=== PATIENT | female | born 1965 | race Caucasian/White ===

== ENCOUNTER 2016-09-21 17:48 | Emergency (ER) | payer BC ==
[~2016-09-21] VITALS: Ht 152.4 cm; Wt 90.7 kg
[~2016-09-21 17:48] MED LIST: ADAL40PE SQ; GABA300C PO; LISD70CA PO; METH-406 PO; NAPR220C15 PO; VENL150C2 PO
--- NOTE | 2016-09-21 18:54 | NUR ---
Dr Hutton is at bedside evaluating the patient, pending MD orders
--- NOTE | 2016-09-21 19:00 | NUR ---
REPORT GIVEN BY DAYSHIFT NURSE... PT ALERT, ORIENTED X 4, NO RESP DISTRESSS NOTED OR REPORTED UPON ASSESSMENT... WILL MONITOR FOR SAFETY, PAIN AND COMFORT...
[2016-09-21] MEDS: HYDROMORPHONE 1 MG/1 ML DISP.SYRIN IM ONE (20:27)
[2016-09-21] MEDS ORDERED: HYDROMORPHONE 1 MG/1 ML DISP.SYRIN ONE (20:28)
--- NOTE | 2016-09-21 20:57 | NUR ---
Patient discharged to home in stable conditon. Written and verbal after care instructions given. Patient verbalizes understanding of instructions. PT WALKED OUT OF ER UNASSISTED WITH BELONGINGS AT SIDE... STATES SON IS ON HIS WAY TO PICK HER UP...
[2016-09-21 20:59] VITALS: BP 134/97
== END 2016-09-21 20:59 | disposition home or self-care (01) ==
LOC: ER 17:48
DX: H66.91 Otitis media, unspecified, right ear (principal); F41.9 Anxiety disorder, unspecified; Z88.0 Allergy status to penicillin; F10.20 Alcohol dependence, uncomplicated; F17.200 Nicotine dependence, unspecified, uncomplicated; M06.9 Rheumatoid arthritis, unspecified; F31.9 Bipolar disorder, unspecified; Z88.2 Allergy status to sulfonamides; Z88.6 Allergy status to analgesic agent; Z88.1 Allergy status to other antibiotic agents; Z88.7 Allergy status to serum and vaccine
CPT/HCPCS: 71020; 93005; 96372; 99284; A4663; J1170

== ENCOUNTER 2016-09-28 05:18 | Emergency (ER) | payer BC ==
[~2016-09-28] VITALS: Ht 162.6 cm; Wt 90.7 kg
[2016-09-28] MEDS ORDERED: LEVO500T15 PO (05:42)
[2016-09-28] MEDS ORDERED: IPRATROPIUM BROMIDE 0.5 MG/2.5 ML NEBU NEB ONE (05:45)
[2016-09-28] MEDS ORDERED: ALBUTEROL SULFATE 2.5 MG/3 ML NEBU NEB ONE (05:45)
[2016-09-28] MEDS ORDERED: ALBUTEROL SULFATE 2.5 MG/3 ML NEBU ONE (05:57)
[2016-09-28] MEDS ORDERED: IPRATROPIUM BROMIDE 0.5 MG/2.5 ML NEBU ONE (05:57)
[2016-09-28] MEDS ORDERED: predniSONE 20 MG TABLET PO ONE (06:00)
[2016-09-28 06:07] LABS: BASOPHILS % (AUTO) 0.5 % (0.0-2.0); CALCIUM 8.4 mg/dL (8.5-10.1); CREATININE 0.8 mg/dL (0.6-1.3); EOSINOPHILS # (AUTO) 0.2 K/uL (0.0-0.7); EOSINOPHILS % (AUTO) 3.1 % (0.0-7.0); HEMATOCRIT 43.3 % (37.0-47.0); HEMOGLOBIN 14.3 g/dL (12.0-16.0); LYMPHOCYTES # (AUTO) 2.2 K/uL (0.8-4.8); LYMPHOCYTES % (AUTO) 36.5 % (20.5-51.5); MEAN CORPUSCULAR HGB CONC 33 g/dL (32.0-37.0); MEAN CORPUSCULAR VOLUME 81.7 fL (81.0-99.0); MONOCYTES # (AUTO) 0.5 K/uL (0.1-1.30); MONOCYTES % (AUTO) 7.8 % (0.0-11.0); NEUTROPHILS # (AUTO) 3.2 K/uL (1.8-8.9); NEUTROPHILS % (AUTO) 52.1 % (38.5-71.5); PLATELET COUNT (AUTO) 274 K/uL (150-450); POTASSIUM 3.6 mmol/L (3.5-5.1); RED BLOOD CELL COUNT(AUTO) 5.29 MIL/uL (4.20-5.40); RED CELL DISTRIBUTION WIDTH 13.6 % (11.5-14.5); WHITE BLOOD COUNT (AUTO) 6.1 K/uL (4.0-11.2)
[2016-09-28] MEDS ORDERED: LORAZEPAM 0.5 MG TABLET PO ONE (06:15)
[2016-09-28 06:19] LABS: ALBUMIN 3.8 g/dL (3.4-5.0); BILIRUBIN,DIRECT 0.1 mg/dL (0.0-0.2); BILIRUBIN,TOTAL 0.6 mg/dL (0.2-1.0); TOTAL PROTEIN, SERUM 8.3 g/dL (6.4-8.2)
[2016-09-28] MEDS ORDERED: LORAZEPAM 1 MG TABLET ONE (06:22)
[2016-09-28] MEDS ORDERED: predniSONE 20 MG TABLET ONE (06:23)
--- NOTE | 2016-09-28 06:34 | NUR ---
PATIENT C/O A HEADACHE AND REQUESTED FOR ICE PACK ON HER HEAD. NURSE GOT ICE PACK FOR PATIENT.
--- NOTE | 2016-09-28 06:59 | NUR ---
SBAR REPORT GIVEN TO ERNESTO.
--- NOTE | 2016-09-28 09:09 | NUR ---
Patient discharged to home in stable conditon. Written and verbal after care instructions given. Patient verbalizes understanding of instructions.PT SAYS FEELS BETTER. HAD SOME HOSPITAL TRAY BREAKFAST. IS GOING TO PMD APPT TODAY. PT AT BEDSIDE TO TAKE THE PT HOME.
[2016-09-28 09:10] VITALS: BP 151/81
== END 2016-09-28 09:32 | disposition home or self-care (01) ==
LOC: ER 05:18
DX: J20.9 Acute bronchitis, unspecified (principal); F41.9 Anxiety disorder, unspecified; M54.9 Dorsalgia, unspecified; M79.7 Fibromyalgia; M06.9 Rheumatoid arthritis, unspecified; F31.9 Bipolar disorder, unspecified; F17.200 Nicotine dependence, unspecified, uncomplicated; Z88.0 Allergy status to penicillin; Z88.1 Allergy status to other antibiotic agents; Z88.6 Allergy status to analgesic agent; Z88.7 Allergy status to serum and vaccine
CPT/HCPCS: 36415; 70030-TC; 71010; 85025; 87040; 93005; A4663; J3590; J7512

== ENCOUNTER 2017-06-27 10:48 | Emergency (ER) | payer BC ==
[~2017-06-27] VITALS: Ht 154.9 cm; Wt 90.7 kg
[~2017-06-27 10:48] MED LIST changes: +LEVO500T2 PO
[2017-06-27] MEDS ORDERED: ONDANSETRON 4 MG/2 ML VIAL IM ONE (12:15)
[2017-06-27] MEDS ORDERED: HYDROMORPHONE 1 MG/1 ML DISP.SYRIN IM ONE (12:15)
--- NOTE | 2017-06-27 12:19 | NUR ---
mse completed, meds admin, left shoulder sling placed, aci/rx 2 given. pt d/c'd home,pt ambulated w/o diff/took all belongings, present and to drive.
[2017-06-27 12:22] VITALS: BP 112/74
[2017-06-27] MEDS ORDERED: ONDANSETRON 4 MG/2 ML VIAL ONE (12:25)
[2017-06-27] MEDS ORDERED: HYDROMORPHONE 4 MG/1 ML DISP.SYRIN ONE (12:26)
== END 2017-06-27 12:21 | disposition home or self-care (01) ==
LOC: ER 10:48
DX: M54.12 Radiculopathy, cervical region (principal); M25.512 Pain in left shoulder; M79.7 Fibromyalgia; M06.9 Rheumatoid arthritis, unspecified; Z88.0 Allergy status to penicillin; Z88.1 Allergy status to other antibiotic agents; Z88.2 Allergy status to sulfonamides; Z88.5 Allergy status to narcotic agent; F17.200 Nicotine dependence, unspecified, uncomplicated; Z90.49 Acquired absence of other specified parts of digestive tract; G43.909 Migraine, unspecified, not intractable, without status migrainosus; J44.9 Chronic obstructive pulmonary disease, unspecified
CPT/HCPCS: A4663; J1170; J2405

== ENCOUNTER 2017-09-09 16:23 | Inpatient (IN) | payer BC ==
[~2017-09-09] VITALS: Ht 162.6 cm; Wt 94.8 kg
[2017-09-09] MEDS ORDERED: ONDANSETRON 4 MG/2 ML VIAL IV ONE (17:30)
[2017-09-09] MEDS ORDERED: IV NORMAL SALINE 1000 ML BAG IV ONE (17:30)
[2017-09-09] MEDS ORDERED: HYDROMORPHONE 1 MG/1 ML DISP.SYRIN IV ONE (17:30)
[2017-09-09] MEDS ORDERED: HYDROMORPHONE 2 MG/1 ML DISP.SYRIN ONE ×2 (17:36→20:45)
[2017-09-09] MEDS ORDERED: ONDANSETRON 4 MG/2 ML VIAL ONE ×2 (17:37→20:48)
[2017-09-09 17:52] LABS: BASOPHILS % (AUTO) 0.3 % (0.0-2.0); EOSINOPHILS # (AUTO) 0.1 K/uL (0.0-0.7); EOSINOPHILS % (AUTO) 1.4 % (0.0-7.0); HEMATOCRIT 44.9 % (31.2-41.9); HEMOGLOBIN 14.9 g/dL (10.9-14.3); LYMPHOCYTES # (AUTO) 2.9 K/uL (20.0-40.0); LYMPHOCYTES % (AUTO) 28.4 % (20.5-51.5); MEAN CORPUSCULAR HEMOGLOBIN 28.3 uug (24.7-32.8); MEAN CORPUSCULAR HGB CONC 33 g/dL (32.3-35.6); MEAN CORPUSCULAR VOLUME 85.3 fL (75.5-95.3); MONOCYTES # (AUTO) 0.9 K/uL (2.0-10.0); MONOCYTES % (AUTO) 9.2 % (0.0-11.0); NEUTROPHILS # (AUTO) 6.1 K/uL (1.8-8.9); NEUTROPHILS % (AUTO) 60.7 % (38.5-71.5); PLATELET COUNT (AUTO) 334 K/uL (179-408); RED BLOOD CELL COUNT(AUTO) 5.26 MIL/uL (3.63-4.92); WHITE BLOOD COUNT (AUTO) 10.1 K/uL (3.8-11.8)
[2017-09-09 18:08] LABS: ALANINE AMINOTRANSFERASE 43 U/L (14-59); ALKALINE PHOSPHATASE 133 U/L (50-136); ASPARTATE AMINOTRANSFERASE 22 U/L (15-37); BILIRUBIN,DIRECT < 0.1 mg/dL (0.0-0.2); BILIRUBIN,TOTAL 0.2 mg/dL (0.2-1.0); CARBON DIOXIDE 28 mmol/L (21-32); CHLORIDE 102 mmol/L (98-107); CREATININE 0.8 mg/dL (0.6-1.3); GLUCOSE 85 mg/dL (74-106); POTASSIUM 4.2 mmol/L (3.5-5.1); TOTAL PROTEIN, SERUM 7.8 g/dL (6.4-8.2); UREA NITROGEN, BLOOD 16 mg/dL (7-18)
[2017-09-09] MEDS ORDERED: ACETAMINOPHEN 325 MG TABLET PO PRN ×2 (19:15→23:32)
[2017-09-09] MEDS ORDERED: Z GUARD REMEDY PASTE 57 GM TUBE TOP PRN (19:15)
[2017-09-09] MEDS ORDERED: HYDROCODONE/APAP 5-325MG TABLET PO PRN ×2 (19:15→23:35)
[2017-09-09] MEDS ORDERED: MAGNESIUM HYDROXIDE 30 ML LIQUID UDC PO PRN ×2 (19:15→23:37)
[2017-09-09] MEDS ORDERED: HYDROMORPHONE 1 MG/1 ML DISP.SYRIN IV PRN (19:15)
[2017-09-09 20:00] VITALS: BP 119/72
[2017-09-09] MEDS: ONDANSETRON 4 MG/2 ML VIAL IV PRN (20:50)
[2017-09-09] MEDS: IV NS 1000 ML 1,000 ML IV PRN (20:52)
[2017-09-09] MEDS ORDERED: HYDROMORPHONE 2 MG/1 ML DISP.SYRIN IV PRN (21:31)
[2017-09-10] MEDS: HYDROMORPHONE 2 MG/1 ML DISP.SYRIN IV PRN ×2 (01:10→09:06)
[2017-09-10] MEDS ORDERED: LORAZEPAM 1 MG TABLET PO ONE (02:00)
[2017-09-10] MEDS: ONDANSETRON 4 MG/2 ML VIAL IV PRN ×2 (02:24→10:11)
[2017-09-10 04:00] VITALS: BP 133/74
[2017-09-10 06:47] LABS: BASOPHILS # (AUTO) 0.1 K/uL (0.0-8.0); BASOPHILS % (AUTO) 1.1 % (0.0-2.0); EOSINOPHILS # (AUTO) 0.1 K/uL (0.0-0.7); EOSINOPHILS % (AUTO) 1.4 % (0.0-7.0); HEMOGLOBIN 13.1 g/dL (10.9-14.3); LYMPHOCYTES # (AUTO) 2.2 K/uL (20.0-40.0); MEAN CORPUSCULAR HEMOGLOBIN 28.7 uug (24.7-32.8); MEAN CORPUSCULAR HGB CONC 33 g/dL (32.3-35.6); MEAN CORPUSCULAR VOLUME 85.8 fL (75.5-95.3); MONOCYTES # (AUTO) 0.6 K/uL (2.0-10.0); MONOCYTES % (AUTO) 9.7 % (0.0-11.0); NEUTROPHILS # (AUTO) 3.4 K/uL (1.8-8.9); NEUTROPHILS % (AUTO) 53.8 % (38.5-71.5); PLATELET COUNT (AUTO) 276 K/uL (179-408); RED BLOOD CELL COUNT(AUTO) 4.58 MIL/uL (3.63-4.92)
[2017-09-10 06:50] LABS: CREATININE 0.7 mg/dL (0.6-1.3); MAGNESIUM 2.1 mg/dL (1.8-2.4); PHOSPHOROUS 4.2 mg/dL (2.5-4.9); POTASSIUM 4.2 mmol/L (3.5-5.1)
[2017-09-10 07:11] LABS: HEMATOCRIT 39.3 % (31.2-41.9); WHITE BLOOD COUNT (AUTO) 6.4 K/uL (3.8-11.8)
[2017-09-10] MEDS ORDERED: LISDEXAMFETAMINE DIMESYLATE 70 MG PO SCH (09:00)
[2017-09-10] MEDS ORDERED: VENLAFAXINE XR 150 MG CAP.SR.24H PO SCH ×2 (09:00→13:00)
[2017-09-10 11:36] VITALS: BP 108/58
[2017-09-10] MEDS: TOPIRAMATE 25 MG TABLET PO SCH ×2 (11:53→20:44)
[2017-09-10 12:10] LABS: *BILIRUBIN,URIN NEGATIVE (NEGATIVE); *BLOOD, URINE NEGATIVE (NEGATIVE); *CLARITY,URINE CLEAR (CLEAR); *COLOR,URINE YELLOW (YELLOW); *KETONES,URINE NEGATIVE (NEGATIVE); *PROTEIN,URINE TRACE (NEGATIVE); *UROBILINOGEN,URINE 0.2 E.U./dl (NORMAL); LEUKOCYTE ESTERASE ,URINE NEGATIVE (NEGATIVE); NITRITE, URINE NEGATIVE (NEGATIVE); PH,URINE 6.5 (5.0-8.0); UGLUCOSE NEGATIVE (NEGATIVE)
[2017-09-10 12:34] LABS: BACTERIA,URINE FEW /HPF (NONE SEEN); RBC,URINE 0-3 /HPF (0-3); SQUAMOUS EPITHELIAL CELL,UR MANY /HPF (NONE SEEN); WBC,URINE 0-3 /HPF (0-3)
[2017-09-10] MEDS: IV NS 1000 ML 1,000 ML IV PRN (15:01)
[2017-09-10] MEDS: MORPHINE SULFATE 4 MG/1 ML DISP.SYRIN IV PRN ×2 (15:01→20:42)
[2017-09-10 15:48] VITALS: BP 113/68
[2017-09-10 20:00] VITALS: BP 121/70
[2017-09-11] MEDS: MORPHINE SULFATE 4 MG/1 ML DISP.SYRIN IV PRN ×2 (02:34→06:57)
[2017-09-11 04:00] VITALS: BP 114/65
== END 2017-09-11 08:45 | disposition left against medical advice (07) | DRG 103 ==
LOC: ER 16:24 → MED 19:17
PROVIDERS: ADMIT Internal Medicine; ATTEND Internal Medicine
DX: R51 Headache (principal); F11.20 Opioid dependence, uncomplicated; H20.9 Unspecified iridocyclitis; D86.0 Sarcoidosis of lung; G89.4 Chronic pain syndrome; F90.9 Attention-deficit hyperactivity disorder, unspecified type; F31.9 Bipolar disorder, unspecified; M06.9 Rheumatoid arthritis, unspecified; Z80.41 Family history of malignant neoplasm of ovary; Z79.899 Other long term (current) drug therapy; Z88.6 Allergy status to analgesic agent; Z88.0 Allergy status to penicillin; Z88.2 Allergy status to sulfonamides; E66.8 Other obesity; Z68.35 Body mass index [BMI] 35.0-35.9, adult; M79.7 Fibromyalgia; M81.0 Age-related osteoporosis without current pathological fracture; G62.9 Polyneuropathy, unspecified
CPT/HCPCS: 36415; 70030-TC; 70450; 71045; 83605; 83735; 84100; 85025; 85730; 87040; 87077; 87086; 93005; A4663; J1170; J2270; J2405; J7030

== ENCOUNTER 2018-01-02 20:25 | Emergency (ER) | payer BC ==
[~2018-01-02] VITALS: Ht 165.1 cm; Wt 87.1 kg
[~2018-01-02 20:25] MED LIST changes: -GABA300C PO; -LEVO500T2 PO; -METH-406 PO; -NAPR220C15 PO
[2018-01-02] MEDS ORDERED: HYDROMORPHONE HCL 2 MG TABLET PO ONE (21:15)
[2018-01-02] MEDS ORDERED: HYDROMORPHONE HCL 2 MG TABLET ONE (21:30)
--- NOTE | 2018-01-02 21:50 | NUR ---
PT IN ROUTE TO CT IN [facility] WITH TRANSPORTER
--- NOTE | 2018-01-02 22:07 | NUR ---
PT BACK FROM CT IN [facility] WITH TRANSPORTER
[2018-01-02] MEDS ORDERED: diphenhydrAMINE 50 MG/1 ML VIAL IM ONE (23:15)
[2018-01-02] MEDS ORDERED: HYDROMORPHONE 1 MG/1 ML DISP.SYRIN IM ONE (23:15)
[2018-01-02] MEDS ORDERED: diphenhydrAMINE 50 MG/1 ML VIAL ONE (23:22)
[2018-01-02] MEDS ORDERED: HYDROMORPHONE 2 MG/1 ML DISP.SYRIN ONE (23:23)
--- NOTE | 2018-01-02 23:30 | NUR ---
Patient discharged to home in stable conditon. Written and verbal after care instructions given. Patient verbalizes understanding of instructions. Patient left with all personal belongings.
[2018-01-02 23:59] VITALS: BP 136/84
== END 2018-01-02 23:30 | disposition home or self-care (01) ==
LOC: ER 20:27
DX: M23.92 Unspecified internal derangement of left knee (principal); J44.9 Chronic obstructive pulmonary disease, unspecified; F17.210 Nicotine dependence, cigarettes, uncomplicated; Z88.0 Allergy status to penicillin; Z88.2 Allergy status to sulfonamides; Z88.1 Allergy status to other antibiotic agents; Z88.5 Allergy status to narcotic agent; Z88.8 Allergy status to other drugs, medicaments and biological substances; Z90.49 Acquired absence of other specified parts of digestive tract; Z79.899 Other long term (current) drug therapy
CPT/HCPCS: 29505; 73700; 96372 ×2; 99284; A4663; J1170; J1200

== ENCOUNTER 2018-01-18 05:50 | Emergency (ER) | payer BC ==
[~2018-01-18] VITALS: Ht 165.1 cm; Wt 88.5 kg
--- NOTE | 2018-01-18 06:00 | NUR ---
Pt ambulated to ER, c/o pain on left knee. Pt states she tore her meniscus and was treated in the ER last week, was scheduled for surgery sometime this week, and last night she fell and hurt left knee.
--- NOTE | 2018-01-18 06:10 | NUR ---
Dr. Núñez at bedside for MSE.
--- NOTE | 2018-01-18 06:29 | NUR ---
Pt out of ER for CT.
[2018-01-18] MEDS ORDERED: HYDROMORPHONE 1 MG/1 ML DISP.SYRIN IM ONE (06:30)
[2018-01-18] MEDS ORDERED: diphenhydrAMINE 50 MG/1 ML VIAL IM ONE (06:30)
[2018-01-18] MEDS ORDERED: FENTANYL CITRATE 100 MCG/2 ML AMPUL IV ONE (06:30)
[2018-01-18] MEDS ORDERED: diphenhydrAMINE 50 MG/1 ML VIAL ONE (06:30)
[2018-01-18] MEDS ORDERED: FENTANYL CITRATE 100 MCG/2 ML AMPUL ONE (06:34)
--- NOTE | 2018-01-18 06:48 | NUR ---
Patient back to ER from CT.
--- NOTE | 2018-01-18 07:05 | NUR ---
SBAR report to Florencio HUERTA.
--- NOTE | 2018-01-18 07:37 | NUR ---
PT WAS D/C TO HOME. D/C INSTRUCTIONS GIVEN TO THE PT BY DR WILD.
[2018-01-18 07:39] VITALS: BP 138/74
== END 2018-01-18 07:45 | disposition home or self-care (01) ==
LOC: ER 05:58
DX: M23.92 Unspecified internal derangement of left knee (principal); J44.9 Chronic obstructive pulmonary disease, unspecified; Z90.49 Acquired absence of other specified parts of digestive tract; Z88.0 Allergy status to penicillin; Z88.1 Allergy status to other antibiotic agents; Z88.2 Allergy status to sulfonamides; Z88.5 Allergy status to narcotic agent; Z88.8 Allergy status to other drugs, medicaments and biological substances; Z79.899 Other long term (current) drug therapy
CPT/HCPCS: 73700; A4663; J1200; J3010

== ENCOUNTER 2018-04-02 12:06 | Emergency (ER) | payer BC ==
[~2018-04-02] VITALS: Ht 162.6 cm; Wt 86.2 kg
[2018-04-02] MEDS ORDERED: AMPH30CA3 PO (12:14)
[2018-04-02 12:28] LABS: *BILIRUBIN,URIN NEGATIVE (NEGATIVE); *BLOOD, URINE NEGATIVE (NEGATIVE); *CLARITY,URINE CLEAR (CLEAR); *COLOR,URINE YELLOW (YELLOW); *KETONES,URINE NEGATIVE (NEGATIVE); *PROTEIN,URINE NEGATIVE (NEGATIVE); *UROBILINOGEN,URINE 0.2 E.U./dl (NORMAL); LEUKOCYTE ESTERASE ,URINE NEGATIVE (NEGATIVE); NITRITE, URINE NEGATIVE (NEGATIVE); UGLUCOSE NEGATIVE (NEGATIVE)
[2018-04-02] MEDS ORDERED: KETOROLAC TROMETHAMINE 15 MG INJ IV ONE (12:30)
[2018-04-02] MEDS ORDERED: IV NORMAL SALINE 1000 ML BAG IV ONE (12:30)
[2018-04-02] MEDS ORDERED: KETOROLAC TROMETHAMINE 30 MG INJ ONE (12:44)
[2018-04-02] MEDS ORDERED: HYDROMORPHONE 1 MG/1 ML DISP.SYRIN ONE (12:47)
[2018-04-02 12:48] LABS: *URINE HCG, QUAL NEGATIVE (NEGATIVE)
[2018-04-02 12:54] LABS: BASOPHILS # (AUTO) 0.1 K/uL (0.0-8.0); BASOPHILS % (AUTO) 1.1 % (0.0-2.0); EOSINOPHILS # (AUTO) 0.2 K/uL (0.0-0.7); EOSINOPHILS % (AUTO) 2.5 % (0.0-7.0); HEMATOCRIT 41.4 % (31.2-41.9); HEMOGLOBIN 13.6 g/dL (10.9-14.3); LYMPHOCYTES # (AUTO) 1.6 K/uL (20.0-40.0); LYMPHOCYTES % (AUTO) 25.1 % (20.5-51.5); MEAN CORPUSCULAR HEMOGLOBIN 28.6 uug (24.7-32.8); MEAN CORPUSCULAR HGB CONC 33 g/dL (32.3-35.6); MEAN CORPUSCULAR VOLUME 86.9 fL (75.5-95.3); MONOCYTES # (AUTO) 0.5 K/uL (2.0-10.0); MONOCYTES % (AUTO) 7.4 % (0.0-11.0); NEUTROPHILS # (AUTO) 4.1 K/uL (1.8-8.9); NEUTROPHILS % (AUTO) 63.9 % (38.5-71.5); PLATELET COUNT (AUTO) 278 K/uL (179-408); RED BLOOD CELL COUNT(AUTO) 4.77 MIL/uL (3.63-4.92); WHITE BLOOD COUNT (AUTO) 6.5 K/uL (3.8-11.8)
[2018-04-02 12:57] LABS: CARBON DIOXIDE 29 mmol/L (21-32); CHLORIDE 105 mmol/L (98-107); CREATININE 0.8 mg/dL (0.6-1.3); GLUCOSE 111 mg/dL (74-106); POTASSIUM 4.2 mmol/L (3.5-5.1); UREA NITROGEN, BLOOD 16 mg/dL (7-18)
[2018-04-02 13:03] LABS: ALANINE AMINOTRANSFERASE 41 U/L (14-59); ALKALINE PHOSPHATASE 133 U/L (50-136); ASPARTATE AMINOTRANSFERASE 34 U/L (15-37); BILIRUBIN,DIRECT < 0.1 mg/dL (0.0-0.2); BILIRUBIN,TOTAL 0.2 mg/dL (0.2-1.0); LIPASE 218 U/L (73-393); TOTAL PROTEIN, SERUM 7.2 g/dL (6.4-8.2)
[2018-04-02] MEDS ORDERED: HYDROMORPHONE 1 MG/1 ML DISP.SYRIN IV ONE (13:15)
--- NOTE | 2018-04-02 13:30 | NUR ---
Patient discharged to home in stable conditon. Written and verbal after care instructions given. Patient verbalizes understanding of instructions.pt walks in steady gait, pt deneis pain or nausea. pt not driving. pt with
[2018-04-02 14:02] VITALS: BP 121/66
== END 2018-04-02 13:30 | disposition other institution (70) ==
LOC: ER 12:06
DX: R10.9 Unspecified abdominal pain (principal); J44.9 Chronic obstructive pulmonary disease, unspecified; F17.200 Nicotine dependence, unspecified, uncomplicated; Z88.0 Allergy status to penicillin; Z88.1 Allergy status to other antibiotic agents; Z88.5 Allergy status to narcotic agent; Z88.2 Allergy status to sulfonamides; Z88.8 Allergy status to other drugs, medicaments and biological substances
CPT/HCPCS: 36415; 83690; 84703; 85025; A4663; J1170; J1885; J7030

== ENCOUNTER 2019-02-06 02:21 | Emergency (ER) | payer BC ==
[~2019-02-06] VITALS: Ht 162.6 cm; Wt 83.9 kg
[~2019-02-06 02:21] MED LIST changes: +AMPH30CA3 PO
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
[2019-02-06] MEDS: ONDANSETRON ODT 4 MG TAB.RAPDIS SL ONE (02:56)
[2019-02-06] MEDS ORDERED: ONDANSETRON ODT 4 MG TAB.RAPDIS ONE (02:57)
[2019-02-06] MEDS ORDERED: HYDROMORPHONE 1 MG/1 ML DISP.SYRIN ONE ×2 (03:03→03:24)
[2019-02-06] MEDS: HYDROMORPHONE 1 MG/1 ML DISP.SYRIN IM ONE ×2 (03:06→03:40)
--- NOTE | 2019-02-06 04:00 | NUR ---
Patient discharged to home in stable conditon. Written and verbal after care instructions given. Patient verbalizes understanding of instructions. Patient wheeled out with a wheelchair in stable condition.
--- NOTE | 2019-02-06 04:00 | NUR ---
Song andrew in ED - 02/06/19 at 0404 by GEOFFREY Patient discharged to home in stable conditon. Written and verbal after care instructions given. Patient verbalizes understanding of instructions. Patient ambulated with stable gait.
[2019-02-06 04:06] VITALS: BP 142/81
== END 2019-02-06 04:07 | disposition home or self-care (01) ==
LOC: ER 02:24
DX: S83.92XA Sprain of unspecified site of left knee, initial encounter (principal); M25.512 Pain in left shoulder; Z71.6 Tobacco abuse counseling; J44.9 Chronic obstructive pulmonary disease, unspecified; F41.9 Anxiety disorder, unspecified; F31.9 Bipolar disorder, unspecified; F17.290 Nicotine dependence, other tobacco product, uncomplicated; G43.909 Migraine, unspecified, not intractable, without status migrainosus; Z90.49 Acquired absence of other specified parts of digestive tract; Z79.899 Other long term (current) drug therapy; Z88.0 Allergy status to penicillin; Z88.1 Allergy status to other antibiotic agents; Z88.2 Allergy status to sulfonamides; Z88.8 Allergy status to other drugs, medicaments and biological substances; W19.XXXA Unspecified fall, initial encounter; Y93.89 Activity, other specified; Y92.89 Other specified places as the place of occurrence of the external cause; Y99.8 Other external cause status
CPT/HCPCS: 73020; A4663; J1170; Q0162

== ENCOUNTER 2019-05-31 07:32 | Emergency (ER) | payer BC ==
[~2019-05-31] VITALS: Ht 162.6 cm; Wt 83.9 kg
[2019-05-31] MEDS ORDERED: MORPHINE SULFATE 4 MG/1 ML DISP.SYRIN IM ONE (08:00)
[2019-05-31] MEDS ORDERED: ONDANSETRON 4 MG/2 ML VIAL IM ONE (08:00)
[2019-05-31] MEDS ORDERED: MORPHINE SULFATE 4 MG/1 ML DISP.SYRIN ONE (08:03)
[2019-05-31] MEDS ORDERED: ONDANSETRON 4 MG/2 ML VIAL ONE (08:03)
--- NOTE | 2019-05-31 09:06 | NUR ---
PATIENT WAS SEEN BY . XRAYS DONE. ICE PACK APPLIED. JOSE WRAP APPLIED. CRUTVHES DISPENSED AND INSTRUCTIONS FOR USE DEMONSTRTD WITH RETRUN DEMONSTRATION. INSTRUCTED NOT TO DRIVE OR ALCOHOL TODAY DUE TO MORPHINE. DC, RX (INCLUDING PRECAUTIONS) AND FOLLOW UP INSTRUCTIONS GIVEN AND EXPLAINED TO PATIENT AND WHO STATE THEY UNDERSTAND ALL INSTRUCTIONS.
== END 2019-05-31 09:09 | disposition home or self-care (01) ==
LOC: ER 07:32
DX: S93.601A Unspecified sprain of right foot, initial encounter (principal); M25.552 Pain in left hip; M79.672 Pain in left foot; G43.909 Migraine, unspecified, not intractable, without status migrainosus; J44.9 Chronic obstructive pulmonary disease, unspecified; F41.9 Anxiety disorder, unspecified; F17.200 Nicotine dependence, unspecified, uncomplicated; Z88.0 Allergy status to penicillin; Z88.2 Allergy status to sulfonamides; Z88.1 Allergy status to other antibiotic agents; Z88.8 Allergy status to other drugs, medicaments and biological substances; Z88.5 Allergy status to narcotic agent; Z79.899 Other long term (current) drug therapy; Z90.49 Acquired absence of other specified parts of digestive tract; W01.198A Fall on same level from slipping, tripping and stumbling with subsequent striking against other object, initial encounter; Y93.89 Activity, other specified; Y92.89 Other specified places as the place of occurrence of the external cause; Y99.8 Other external cause status
CPT/HCPCS: 73630; 96372 ×2; 99283; J2270; J2405; A4663

== ENCOUNTER 2019-07-14 09:25 | Emergency (ER) | payer BC ==
[~2019-07-14] VITALS: Ht 162.6 cm; Wt 86.2 kg
--- NOTE | 2019-07-14 09:50 | NUR ---
Dr Sharpe seen and examined the pt.
[2019-07-14] MEDS ORDERED: ONDANSETRON 4 MG/2 ML VIAL IM ONE (10:00)
[2019-07-14] MEDS ORDERED: HYDROMORPHONE 1 MG/1 ML DISP.SYRIN IM ONE (10:00)
--- NOTE | 2019-07-14 10:01 | NUR ---
Pt out of ER for CT.
[2019-07-14] MEDS ORDERED: ONDANSETRON 4 MG/2 ML VIAL ONE (10:22)
[2019-07-14] MEDS ORDERED: HYDROMORPHONE 1 MG/1 ML DISP.SYRIN ONE (10:22)
--- NOTE | 2019-07-14 12:04 | NUR ---
LAB ABD CT RESULTS EXPLAINED TO PT BY DR STRAUSS. DISCHARGED IN STABLE CONDITION.
--- NOTE | 2019-07-14 12:18 | NUR ---
Patient discharged to home in stable conditon. Written and verbal after care instructions given. Patient verbalizes understanding of instructions.
[2019-07-14 12:19] VITALS: BP 136/83
== END 2019-07-14 12:19 | disposition home or self-care (01) ==
LOC: ER 09:25
DX: S01.312A Laceration without foreign body of left ear, initial encounter (principal); J44.9 Chronic obstructive pulmonary disease, unspecified; F41.9 Anxiety disorder, unspecified; F31.9 Bipolar disorder, unspecified; F17.200 Nicotine dependence, unspecified, uncomplicated; Z88.0 Allergy status to penicillin; Z88.1 Allergy status to other antibiotic agents; Z88.2 Allergy status to sulfonamides; Z88.5 Allergy status to narcotic agent; Z88.8 Allergy status to other drugs, medicaments and biological substances; Z79.899 Other long term (current) drug therapy; W26.8XXA Contact with other sharp object(s), not elsewhere classified, initial encounter; Y93.89 Activity, other specified; Y92.89 Other specified places as the place of occurrence of the external cause; Y99.8 Other external cause status
CPT/HCPCS: 70480; 96372 ×2; 99284; J1170; J2405; A4663

== ENCOUNTER 2019-09-16 06:58 | Inpatient (IN) | payer BC ==
[~2019-09-16] VITALS: Ht 162.6 cm; Wt 90.7 kg
[2019-09-16] MEDS ORDERED: ONDANSETRON 4 MG/2 ML VIAL IV ONE ×2 (07:30→13:45)
[2019-09-16] MEDS ORDERED: MORPHINE SULFATE 4 MG/1 ML DISP.SYRIN IV ONE (07:30)
[2019-09-16] MEDS ORDERED: MORPHINE SULFATE 4 MG/1 ML DISP.SYRIN ONE (07:40)
[2019-09-16] MEDS ORDERED: ONDANSETRON 4 MG/2 ML VIAL ONE ×2 (07:40→13:44)
--- NOTE | 2019-09-16 07:40 | NUR ---
Bladder scan done after pt voided as ordered. Zero urine result, Dr Sharpe aware.
[2019-09-16 07:49] LABS: BASOPHILS # (AUTO) 0.1 K/uL (0.0-8.0); BASOPHILS % (AUTO) 1.1 % (0.0-2.0); EOSINOPHILS # (AUTO) 0.2 K/uL (0.0-0.7); EOSINOPHILS % (AUTO) 2.1 % (0.0-7.0); HEMATOCRIT 40.4 % (31.2-41.9); HEMOGLOBIN 13.5 g/dL (10.9-14.3); LYMPHOCYTES # (AUTO) 2.4 K/uL (20.0-40.0); LYMPHOCYTES % (AUTO) 29.3 % (20.5-51.5); MEAN CORPUSCULAR HEMOGLOBIN 28.1 uug (24.7-32.8); MEAN CORPUSCULAR HGB CONC 33 g/dL (32.3-35.6); MEAN CORPUSCULAR VOLUME 84.4 fL (75.5-95.3); MONOCYTES # (AUTO) 0.8 K/uL (2.0-10.0); MONOCYTES % (AUTO) 9.4 % (0.0-11.0); NEUTROPHILS # (AUTO) 4.8 K/uL (1.8-8.9); NEUTROPHILS % (AUTO) 58.1 % (38.5-71.5); PLATELET COUNT (AUTO) 320 K/uL (179-408); RED BLOOD CELL COUNT(AUTO) 4.79 MIL/uL (3.63-4.92); WHITE BLOOD COUNT (AUTO) 8.3 K/uL (3.8-11.8)
[2019-09-16 07:55] LABS: *BILIRUBIN,URIN NEGATIVE (NEGATIVE); *BLOOD, URINE NEGATIVE (NEGATIVE); *COLOR,URINE YELLOW (YELLOW); *KETONES,URINE NEGATIVE (NEGATIVE); *UROBILINOGEN,URINE 0.2 E.U./dl (NORMAL); LEUKOCYTE ESTERASE ,URINE NEGATIVE (NEGATIVE); NITRITE, URINE NEGATIVE (NEGATIVE); PH,URINE 5.5 (5.0-8.0); UGLUCOSE NEGATIVE (NEGATIVE)
[2019-09-16 07:56] LABS: *CLARITY,URINE HAZY (CLEAR)
[2019-09-16 08:00] LABS: CREATININE 0.8 mg/dL (0.6-1.3); POTASSIUM 3.7 mmol/L (3.5-5.1)
[2019-09-16 08:04] LABS: RBC,URINE 0-3 /HPF (0-3); WBC,URINE 0-3 /HPF (0-3)
[2019-09-16 08:05] LABS: BACTERIA,URINE MODERATE /HPF (NONE SEEN); SQUAMOUS EPITHELIAL CELL,UR MODERATE /HPF (NONE SEEN)
[2019-09-16 08:06] LABS: MUCUS,URINE MODERATE /LPF (0-FEW); URINE AMORPHOUS URATE FEW /HPF
[2019-09-16] MEDS ORDERED: DEXAMETHASONE SOD PHOSPHATE 4 MG INJ ONE (08:08)
[2019-09-16] MEDS ORDERED: HYDROMORPHONE 1 MG/1 ML DISP.SYRIN ONE ×3 (08:09→13:44)
[2019-09-16 08:12] LABS: BILIRUBIN,DIRECT 0.1 mg/dL (0.0-0.2); BILIRUBIN,TOTAL 0.5 mg/dL (0.2-1.0); TOTAL PROTEIN, SERUM 8.7 g/dL (6.4-8.2)
[2019-09-16] MEDS ORDERED: HYDROMORPHONE 1 MG/1 ML DISP.SYRIN IV ONE ×3 (08:15→13:45)
[2019-09-16] MEDS ORDERED: DEXAMETHASONE SOD PHOSPHATE 4 MG INJ IV ONE (08:15)
[2019-09-16] MEDS ORDERED: IV NORMAL SALINE 1000 ML BAG IV ONE (08:15)
--- NOTE | 2019-09-16 08:37 | NUR ---
TEXTED DR. SOLIMAN FOR MRI APPROVAL.
--- NOTE | 2019-09-16 08:38 | NUR ---
MRI APPROVED, CALLING ROOMING HOUSE KEEPER TO SEE WHAT TIME CAN IT BE DONE.
[2019-09-16] MEDS ORDERED: LORAZEPAM 2 MG/1 ML VIAL ONE ×2 (08:39→09:09)
[2019-09-16] MEDS ORDERED: LORAZEPAM 2 MG/1 ML VIAL IV ONE ×2 (08:45→09:30)
--- NOTE | 2019-09-16 08:59 | NUR ---
CALLED [facility], TALKED TO [facility]. MRI SCHEDULED FOR 1100 CALLED [facility], PICKING TIME 1000. TRIP NUMBER [id number].
--- NOTE | 2019-09-16 09:10 | NUR ---
PT VERY RESTLESS INSPITE OF COMFORT MEASURES AND PAIN MEDS PROVIDED. PT AT BEDSIDE.
--- NOTE | 2019-09-16 09:47 | NUR ---
PT CALM NOW, ON MONITOR. VSS.
--- NOTE | 2019-09-16 10:39 | NUR ---
AMBULANCE AT BEDSIDE. PT FUULY AWAKE, AXOX4, PT AT BEDSIDE. VSS.
--- NOTE | 2019-09-16 12:21 | NUR ---
PT BACK FROM [facility] MRI. PT AWAKE, AXOX4. CO PAIN 8/10 ON THE LEFT BUTTOCK/FLANK.
--- NOTE | 2019-09-16 13:26 | NUR ---
PT AMBULATED TO BATH ROOM WITH ASSISSTANCE.
--- NOTE | 2019-09-16 14:00 | NUR ---
lance friend talked to dr. vicente for neuro consult.
--- NOTE | 2019-09-16 15:40 | NUR ---
pt very restless, walking around co pain 10/10 on the left buttock, radiating to left flank. comfort measures provided , md notified. order for pain management recieved. pt at bedside on and off.
[2019-09-16] MEDS ORDERED: KETOROLAC TROMETHAMINE 30 MG INJ IVP ONE (16:00)
[2019-09-16] MEDS ORDERED: KETOROLAC TROMETHAMINE 30 MG INJ ONE (16:02)
--- NOTE | 2019-09-16 16:31 | NUR ---
pt brought sandwich for pt. oked for pt to eat.
--- NOTE | 2019-09-16 17:00 | NUR ---
pt urinated on the floor, stating that she could not make it to bath room.
[2019-09-16] MEDS ORDERED: GADOTERIDOL 279.3 MG/ML, 15 ML VIAL ONE (17:25)
--- NOTE | 2019-09-16 17:56 | NUR ---
pt transfered to floor in stable condition.
[2019-09-16] MEDS ORDERED: ONDANSETRON 4 MG/2 ML VIAL IV PRN (18:00)
[2019-09-16] MEDS ORDERED: HYDROCODONE/APAP 5-325MG TABLET PO PRN (18:00)
[2019-09-16] MEDS ORDERED: Z GUARD REMEDY PASTE 57 GM TUBE TOP PRN (18:00)
[2019-09-16] MEDS ORDERED: MAGNESIUM HYDROXIDE 30 ML LIQUID UDC PO PRN (18:00)
[2019-09-16] MEDS ORDERED: PROGESTERONE MICRONIZED PO SCH (18:00)
[2019-09-16] MEDS ORDERED: HYDROMORPHONE 1 MG/1 ML DISP.SYRIN IV PRN (18:00)
[2019-09-16] MEDS ORDERED: ACETAMINOPHEN 325 MG TABLET PO PRN (18:00)
[2019-09-16 18:20] VITALS: BP 121/72
[2019-09-16] MEDS ORDERED: KETOROLAC TROMETHAMINE 30 MG INJ IVP PRN (18:45)
[2019-09-16] MEDS: HYDROMORPHONE 1 MG/1 ML DISP.SYRIN IV PRN ×2 (18:55→23:55)
[2019-09-16] MEDS: IV 1/2NS 1000 ML 1,000 ML IV PRN (19:07)
--- NOTE | 2019-09-16 19:16 | NUR ---
Patient admitted from er in stable condition and no signs of distress; admission completed. Report given to oncoming nurse.
[2019-09-16 20:00] VITALS: BP 107/49
[2019-09-16] MEDS: PROGESTERONE 100 MG PO SCH (21:05)
[2019-09-17 04:14] VITALS: BP 119/62
[2019-09-17] MEDS: HYDROMORPHONE 1 MG/1 ML DISP.SYRIN IV PRN ×2 (05:42→10:27)
[2019-09-17 06:21] LABS: BASOPHILS % (AUTO) 0.3 % (0.0-2.0); EOSINOPHILS % (AUTO) 0.4 % (0.0-7.0); HEMATOCRIT 35.8 % (31.2-41.9); HEMOGLOBIN 11.9 g/dL (10.9-14.3); LYMPHOCYTES % (AUTO) 22.6 % (20.5-51.5); MEAN CORPUSCULAR HEMOGLOBIN 28.5 uug (24.7-32.8); MEAN CORPUSCULAR HGB CONC 33 g/dL (32.3-35.6); MEAN CORPUSCULAR VOLUME 85.5 fL (75.5-95.3); MONOCYTES % (AUTO) 11.5 % (0.0-11.0); NEUTROPHILS # (AUTO) 5.7 K/uL (1.8-8.9); NEUTROPHILS % (AUTO) 65.2 % (38.5-71.5); PLATELET COUNT (AUTO) 280 K/uL (179-408); RED BLOOD CELL COUNT(AUTO) 4.18 MIL/uL (3.63-4.92); WHITE BLOOD COUNT (AUTO) 8.7 K/uL (3.8-11.8)
[2019-09-17 06:32] LABS: CREATININE 0.9 mg/dL (0.6-1.3); MAGNESIUM 2.1 mg/dL (1.8-2.4); PHOSPHOROUS 2.7 mg/dL (2.5-4.9); POTASSIUM 3.8 mmol/L (3.5-5.1)
--- NOTE | 2019-09-17 06:34 | NUR ---
Patient slept well through the night with pain medications given PRN.Episodes of waking up secondary to pain, Dilaudid given 2x during shift, Toradol given 1x, both as ordered. Able to ambulate to the bathroom unassisted, reinforced importance of asking for help since she is taking pain medications. Slowly complying. With multiple demands throughout shift, all needs attended. When awake, pt is alert and verbally responsive, with episodes of getting easily anxious and restless, easily redirected. Kept safe duringh shift. Will continue to monitor and endorse accordingly.
[2019-09-17] MEDS ORDERED: AMPHET PO SCH (09:00)
[2019-09-17] MEDS ORDERED: [UNRECOGNIZED DRUG - OTHER] PO SCH (09:00)
[2019-09-17] MEDS ORDERED: AMPHET ASP PO SCH (09:00)
[2019-09-17] MEDS ORDERED: D AMPHET PO SCH (09:00)
[2019-09-17] MEDS ORDERED: VENLAFAXINE XR 150 MG CAP.SR.24H PO SCH (09:00)
[2019-09-17] MEDS ORDERED: ESTRADIOL PO SCH (09:00)
[2019-09-17] MEDS ORDERED: Medication Not On Formulary EA (Progesterone,Micronized (Prometrium) 100 MG) PO SCH (09:00)
[2019-09-17] MEDS ORDERED: ESTRADIOL 1 MG TABLET PO SCH (09:00)
[2019-09-17] MEDS: IV 1/2NS 1000 ML 1,000 ML IV PRN (09:40)
[2019-09-17 11:30] VITALS: BP 125/84
[2019-09-17] MEDS: DEXAMETHASONE SOD PHOSPHATE 4 MG INJ IV SCH ×2 (14:57→21:00)
[2019-09-17] MEDS: HYDROMORPHONE 2 MG/1 ML DISP.SYRIN IV PRN ×2 (14:57→18:28)
[2019-09-17 15:33] VITALS: BP 110/63
[2019-09-17] MEDS ORDERED: LIDOCAINE 5% PATCH TD SCH (17:15)
[2019-09-17] MEDS: METHOCARBAMOL 500 MG TABLET PO SCH ×2 (18:29→21:14)
--- NOTE | 2019-09-17 19:50 | NUR ---
Patient calm and comfortable through out shift with no signs of distress; patient managed with prn pain medication; patient with stable vital signs and no signs of distress.
[2019-09-17] MEDS: PROGESTERONE 100 MG PO SCH (21:14)
--- NOTE | 2019-09-17 21:19 | NUR ---
Patient discharged home in stable condition. Discharge instructions explained and signed by patient. Patient verbalized understanding. Patients belongings and medications given back and signed. Patient accompanied by STOREKEEPER STEWARD and ambulated to [facility] and left in private car. 2100 IV medication not given, no IV access.
== END 2019-09-17 21:21 | disposition home or self-care (01) | DRG 551 ==
LOC: ER 07:00 → MEDSURG3 17:28
PROVIDERS: ADMIT Internal Medicine; ATTEND Internal Medicine
DX: M51.16 Intervertebral disc disorders with radiculopathy, lumbar region (principal); N17.0 Acute kidney failure with tubular necrosis; F11.20 Opioid dependence, uncomplicated; M06.9 Rheumatoid arthritis, unspecified; M47.26 Other spondylosis with radiculopathy, lumbar region; L40.9 Psoriasis, unspecified; M79.7 Fibromyalgia; G89.4 Chronic pain syndrome; L40.50 Arthropathic psoriasis, unspecified; F90.9 Attention-deficit hyperactivity disorder, unspecified type; D86.0 Sarcoidosis of lung; F31.9 Bipolar disorder, unspecified; Z80.41 Family history of malignant neoplasm of ovary; Z90.49 Acquired absence of other specified parts of digestive tract; Z79.899 Other long term (current) drug therapy; E66.9 Obesity, unspecified; Z68.34 Body mass index [BMI] 34.0-34.9, adult; M81.0 Age-related osteoporosis without current pathological fracture; R32 Unspecified urinary incontinence; F41.9 Anxiety disorder, unspecified; R73.9 Hyperglycemia, unspecified
CPT/HCPCS: 36415; 72158; 83735; 84100; 85025; 87086; A4663; A9579; G0378; J1100; J1170; J1885; J2060; J2270; J2405; J3490; J7030

== ENCOUNTER 2019-12-13 22:44 | Emergency (ER) | payer BC ==
[~2019-12-13] VITALS: Ht 162.6 cm; Wt 98.0 kg
[~2019-12-13 22:44] MED LIST changes: +ESTR1TAB21 PO; +HYDR2TAB4 PO; -LISD70CA PO; +PROG100C15 PO
--- NOTE | 2019-12-13 23:11 | NUR ---
Dr. Abel at bedside for MSE.
[2019-12-13] MEDS ORDERED: HYDROMORPHONE HCL 2 MG TABLET PO ONE (23:30)
[2019-12-13] MEDS ORDERED: HYDROMORPHONE HCL 2 MG TABLET ONE (23:30)
[2019-12-14] MEDS ORDERED: ACETAMINOPHEN ES 500 MG TABLET PO ONE
[2019-12-14] MEDS ORDERED: ACETAMINOPHEN ES 500 MG TABLET ONE (00:02)
[2019-12-14] MEDS ORDERED: VENLAFAXINE 25 MG TABLET ONE (00:10)
[2019-12-14] MEDS ORDERED: VENLAFAXINE 25 MG TABLET PO ONE (00:15)
--- NOTE | 2019-12-14 00:26 | NUR ---
Patient eloped from facility. Patient stated she doesn't want to be in the hospital any longer. ER physician notified.
== END 2019-12-14 00:33 | disposition left against medical advice (07) ==
LOC: ER 22:55
DX: M25.572 Pain in left ankle and joints of left foot (principal); G89.29 Other chronic pain; M79.89 Other specified soft tissue disorders; Z85.43 Personal history of malignant neoplasm of ovary; M06.9 Rheumatoid arthritis, unspecified; M79.7 Fibromyalgia; J44.9 Chronic obstructive pulmonary disease, unspecified; L40.50 Arthropathic psoriasis, unspecified; M54.30 Sciatica, unspecified side; F11.20 Opioid dependence, uncomplicated
CPT/HCPCS: A4663; A9150

== ENCOUNTER 2019-12-14 12:39 | Emergency (ER) | payer BC ==
[~2019-12-14] VITALS: Ht 162.6 cm; Wt 90.7 kg
[2019-12-14] MEDS ORDERED: VANCOMYCIN IV 200 ML ONE (13:26)
[2019-12-14] MEDS ORDERED: VANCOMYCIN IV 1,000 MG in IV DEXTROSE 5% 250 ML IV ONE (13:30)
--- NOTE | 2019-12-14 13:39 | NUR ---
for U/S@this time, patient is c/o chronic spasms of her extremities, notified
[2019-12-14] MEDS ORDERED: ONDANSETRON 4 MG/2 ML VIAL IV ONE (14:00)
[2019-12-14] MEDS ORDERED: ONDANSETRON 4 MG/2 ML VIAL ONE (14:03)
--- NOTE | 2019-12-14 15:58 | NUR ---
IV removed by DEANNA Gipson. Catheter intact and site benign. Pressure and 4x4 gauze applied to site. No bleeding noted. Patient discharged to home in stable condition and slow steady gait. Written and verbal after care instructions given by DEANNA Gipson. Patient verbalized understanding and compliance of instructions. Stressed follow up for repeat IV Vanco in 12 hours or return to ER for worsening s/s.
== END 2019-12-14 16:02 | disposition home or self-care (01) ==
LOC: ER 12:39
DX: L03.116 Cellulitis of left lower limb (principal); G89.4 Chronic pain syndrome; L40.50 Arthropathic psoriasis, unspecified; M79.7 Fibromyalgia; J44.9 Chronic obstructive pulmonary disease, unspecified; Z79.899 Other long term (current) drug therapy; Z85.43 Personal history of malignant neoplasm of ovary
CPT/HCPCS: 93971; 96365; 96366; 96375; 99284; J2405; J3370; A4663

== ENCOUNTER 2019-12-15 04:56 | Emergency (ER) | payer BC ==
[~2019-12-15] VITALS: Ht 162.6 cm; Wt 90.7 kg
--- NOTE | 2019-12-15 05:00 | NUR ---
Pt brought herself in, steady gait. Pt is AO x 4. According to patient, she is back for a second dose of Vancomycin as instructed by MD she saw earlier in the day here in [facility]. Pt's main complaint is swelling on L foot. Not in any distress at this time. Respirations even and unlabored. VS taken was within normal limits. Fall and safety precautions maintained.
--- NOTE | 2019-12-15 05:10 | NUR ---
Dr Pinon at bedside for MSE.
[2019-12-15] MEDS ORDERED: ONDANSETRON 4 MG/2 ML VIAL IV ONE (05:30)
[2019-12-15] MEDS ORDERED: VANCOMYCIN 1G/D5W 200 ML PIGGYBACK IV ONE (05:30)
[2019-12-15] MEDS ORDERED: VANCOMYCIN IV 200 ML ONE (05:31)
[2019-12-15] MEDS ORDERED: ONDANSETRON 4 MG/2 ML VIAL ONE (05:36)
--- NOTE | 2019-12-15 06:00 | NUR ---
After evaluation, ordered COVID19 swab on patient. Placed pt on airborne/droplet precautions as PUI. Isolation precautions followed. Due meds given. IV Vanco started. Side rails up x 2. Fall and safety precautions maintained.
[2019-12-15 06:46] LABS: BASOPHILS # (AUTO) 0.1 K/uL (0.0-8.0); BASOPHILS % (AUTO) 0.9 % (0.0-2.0); EOSINOPHILS # (AUTO) 0.2 K/uL (0.0-0.7); EOSINOPHILS % (AUTO) 2.1 % (0.0-7.0); HEMOGLOBIN 13.2 g/dL (10.9-14.3); LYMPHOCYTES # (AUTO) 1.9 K/uL (20.0-40.0); LYMPHOCYTES % (AUTO) 20.8 % (20.5-51.5); MEAN CORPUSCULAR HEMOGLOBIN 28.5 uug (24.7-32.8); MEAN CORPUSCULAR HGB CONC 33 g/dL (32.3-35.6); MEAN CORPUSCULAR VOLUME 86.4 fL (75.5-95.3); MONOCYTES # (AUTO) 0.8 K/uL (2.0-10.0); MONOCYTES % (AUTO) 8.3 % (0.0-11.0); NEUTROPHILS # (AUTO) 6.2 K/uL (1.8-8.9); NEUTROPHILS % (AUTO) 67.9 % (38.5-71.5); PLATELET COUNT (AUTO) 296 K/uL (179-408); RED BLOOD CELL COUNT(AUTO) 4.62 MIL/uL (3.63-4.92); WHITE BLOOD COUNT (AUTO) 9.1 K/uL (3.8-11.8)
[2019-12-15 06:51] LABS: CREATININE 0.9 mg/dL (0.6-1.3); POTASSIUM 3.6 mmol/L (3.5-5.1)
[2019-12-15] MEDS ORDERED: CEFTRIAXONE 1 G in IV DEXTROSE 5% 50 ML IV ONE (07:30)
[2019-12-15] MEDS ORDERED: CEFTRIAXONE /D5W 50ML IVPB **ER PYXIS IV ONE (07:39)
[2019-12-15] MEDS ORDERED: OXYCODONE/APAP 5-325 MG TABLET ONE (07:56)
[2019-12-15] MEDS ORDERED: OXYCODONE/APAP 5-325 MG TABLET PO ONE (08:00)
--- NOTE | 2019-12-15 09:41 | NUR ---
IV removed. Catheter intact and site benign. Pressure and 4x4 gauze applied to site. No bleeding noted. Patient discharged to home in stable condition. Written and verbal after care instructions given. Patient verbalizes understanding of instructions. Stressed follow up or return to ER for worsening s/s. Patient ambulated to w/c without assistance. Patient taken to patient's car outside of ER via w/c. Patient able to ambulate into passenger side of car
[2019-12-15 09:43] VITALS: BP 113/57
== END 2019-12-15 09:41 | disposition home or self-care (01) ==
LOC: ER 05:00
DX: L03.116 Cellulitis of left lower limb (principal); J02.9 Acute pharyngitis, unspecified; Z20.828 Contact with and (suspected) exposure to other viral communicable diseases; G89.4 Chronic pain syndrome; L40.50 Arthropathic psoriasis, unspecified; M79.7 Fibromyalgia; Z79.899 Other long term (current) drug therapy; Z88.0 Allergy status to penicillin; Z88.2 Allergy status to sulfonamides; M06.9 Rheumatoid arthritis, unspecified
CPT/HCPCS: 36415; 80048; 85025; 96365; 96366; 96367; 96375; 99284; J0696; J2405; J3370; U0003; A4663

== ENCOUNTER 2019-12-15 21:51 | Emergency (ER) | payer BC ==
[~2019-12-15] VITALS: Ht 162.6 cm; Wt 81.6 kg
--- NOTE | 2019-12-15 22:10 | NUR ---
Dr Pinon at bedside for MSE.
[2019-12-15] MEDS: VANCOMYCIN 1G/D5W 200 ML PIGGYBACK IV ONE ×2 (22:15→23:15)
[2019-12-15] MEDS ORDERED: KETOROLAC TROMETHAMINE 30 MG INJ IVP ONE (22:30)
[2019-12-15] MEDS ORDERED: ONDANSETRON ODT 4 MG TAB.RAPDIS SL ONE (22:30)
[2019-12-15] MEDS ORDERED: ONDANSETRON ODT 4 MG TAB.RAPDIS ONE (22:55)
[2019-12-15] MEDS ORDERED: KETOROLAC TROMETHAMINE 30 MG INJ ONE (22:55)
[2019-12-15] MEDS ORDERED: VANCOMYCIN IV 200 ML ONE (22:56)
--- NOTE | 2019-12-15 23:15 | NUR ---
Pt is back for R foot cellulitis, IV infusion. RN saw this pt earlier during the day as well. No changes since then. Foot swelling and redness actually appears slightly better, less red and swollen at this time. No other complaints. All MD orders noted and carried out. IV Vancomycin started, on R AC 20G, running well with no s/sx of allergy and other adverse reactions. Placed in comfortable position. Ready for DC, waiting for infusion to finish.
--- NOTE | 2019-12-16 01:03 | NUR ---
Patient discharged to home in stable condition. Written and verbal after care instructions given. Patient verbalizes understanding of instructions. Stressed follow up or return to ER for worsening s/s. Ambulated out of ER in steady gait.
[2019-12-16 01:04] VITALS: BP 150/78
== END 2019-12-16 07:56 | disposition home or self-care (01) ==
LOC: ER 21:53
DX: L03.116 Cellulitis of left lower limb (principal); G89.4 Chronic pain syndrome; F11.20 Opioid dependence, uncomplicated; L40.50 Arthropathic psoriasis, unspecified; M79.7 Fibromyalgia; Z88.1 Allergy status to other antibiotic agents; Z88.0 Allergy status to penicillin; Z88.2 Allergy status to sulfonamides; J44.9 Chronic obstructive pulmonary disease, unspecified
CPT/HCPCS: 96365; 96375; 99284; J1885; J3370; A4663; Q0162

== ENCOUNTER 2019-12-16 12:18 | Emergency (ER) | payer BC ==
[~2019-12-16] VITALS: Ht 162.6 cm; Wt 81.6 kg
[2019-12-16] MEDS ORDERED: VANCOMYCIN 1G/D5W 200 ML PIGGYBACK IV ONE (12:30)
[2019-12-16] MEDS ORDERED: VANCOMYCIN IV 200 ML ONE (12:37)
[2019-12-16] MEDS ORDERED: ONDANSETRON 4 MG/2 ML VIAL ONE (13:34)
[2019-12-16] MEDS ORDERED: ONDANSETRON 4 MG/2 ML VIAL IV ONE (13:45)
--- NOTE | 2019-12-16 14:51 | NUR ---
Patient discharged to home in stable condition. Written and verbal after care instructions given. Patient verbalizes understanding of instructions. Stressed follow up or return to ER for worsening s/s. pt states that she was contacted by her own pmd for follow up on the out pt infusion. pt walks in steady gait. pt tolerated vanco, no sign of allergic reaction
[2019-12-16 14:54] VITALS: BP 121/61
== END 2019-12-16 14:55 | disposition home or self-care (01) ==
LOC: ER 12:18
DX: L03.116 Cellulitis of left lower limb (principal); G89.4 Chronic pain syndrome; L40.50 Arthropathic psoriasis, unspecified; D86.9 Sarcoidosis, unspecified; M79.7 Fibromyalgia; F11.20 Opioid dependence, uncomplicated; J44.9 Chronic obstructive pulmonary disease, unspecified
CPT/HCPCS: 96365; 96366; 96375; 99284; J2405; J3370; A4663

== ENCOUNTER 2019-12-17 04:24 | Emergency (ER) | payer BC ==
[~2019-12-17] VITALS: Ht 165.1 cm; Wt 90.7 kg
[2019-12-17] MEDS ORDERED: ONDANSETRON 4 MG/2 ML VIAL IV ONE (05:00)
[2019-12-17] MEDS ORDERED: VANCOMYCIN IV 1,000 MG in IV DEXTROSE 5% 250 ML IV ONE (05:00)
--- NOTE | 2019-12-17 05:00 | NUR ---
PATIENT WAS MSE BY DR STRAUSS IN ROOM 04A. PATIENT A & O X4.
[2019-12-17] MEDS ORDERED: CEFTRIAXONE 1 G in IV DEXTROSE 5% 50 ML IV ONE (05:15)
[2019-12-17] MEDS ORDERED: ONDANSETRON 4 MG/2 ML VIAL ONE (05:16)
[2019-12-17] MEDS ORDERED: CEFTRIAXONE /D5W 50ML IVPB **ER PYXIS IV ONE (05:16)
[2019-12-17] MEDS ORDERED: VANCOMYCIN IV 200 ML ONE (05:16)
--- NOTE | 2019-12-17 06:48 | NUR ---
Patient discharged to home in stable condition. Verbal after care instructions given per DR Israel. Patient verbalizes understanding of instructions. Stressed follow up or return to ER for worsening s/s.
[2019-12-17 06:51] VITALS: BP 112/71
== END 2019-12-17 06:53 | disposition home or self-care (01) ==
LOC: ER 04:27
DX: L03.116 Cellulitis of left lower limb (principal); Z85.43 Personal history of malignant neoplasm of ovary; Z88.1 Allergy status to other antibiotic agents; Z88.0 Allergy status to penicillin; G89.4 Chronic pain syndrome; J44.9 Chronic obstructive pulmonary disease, unspecified; M79.7 Fibromyalgia; L40.50 Arthropathic psoriasis, unspecified; D86.9 Sarcoidosis, unspecified; F90.9 Attention-deficit hyperactivity disorder, unspecified type; Z79.899 Other long term (current) drug therapy
CPT/HCPCS: 96365; 96367; 96375; 99284; J0696; J2405; J3370; A4663

== ENCOUNTER 2019-12-29 16:02 | Emergency (ER) | payer BC ==
[~2019-12-29] VITALS: Ht 165.1 cm; Wt 90.7 kg
[2019-12-29] MEDS ORDERED: VANCOMYCIN IV 1,000 MG in IV DEXTROSE 5% 250 ML IV ONE (16:30)
[2019-12-29] MEDS ORDERED: VANCOMYCIN IV 200 ML ONE (16:31)
[2019-12-29] MEDS ORDERED: ONDANSETRON 4 MG/2 ML VIAL ONE (16:44)
[2019-12-29] MEDS ORDERED: HYDROMORPHONE 2 MG/1 ML DISP.SYRIN ONE (16:44)
[2019-12-29] MEDS ORDERED: ONDANSETRON 4 MG/2 ML VIAL IV ONE (16:45)
[2019-12-29] MEDS ORDERED: HYDROMORPHONE 1 MG/1 ML DISP.SYRIN IV ONE (16:45)
[2019-12-29 16:46] LABS: *BLOOD, URINE NEGATIVE (NEGATIVE); *CLARITY,URINE SLIGHTLY CLOUDY (CLEAR); *COLOR,URINE DARK YELLOW (YELLOW); *KETONES,URINE NEGATIVE (NEGATIVE); *UROBILINOGEN,URINE 0.2 E.U./dl (NORMAL); LEUKOCYTE ESTERASE ,URINE NEGATIVE (NEGATIVE); NITRITE, URINE NEGATIVE (NEGATIVE); PH,URINE 5.5 (5.0-8.0); UGLUCOSE NEGATIVE (NEGATIVE)
[2019-12-29 16:51] LABS: *BILIRUBIN,URIN 1+ (NEGATIVE)
[2019-12-29 16:54] LABS: BACTERIA,URINE FEW /HPF (NONE SEEN); RBC,URINE 0-3 /HPF (0-3); SQUAMOUS EPITHELIAL CELL,UR MODERATE /HPF (NONE SEEN); WBC,URINE 0-3 /HPF (0-3)
[2019-12-29 16:55] LABS: RED BLOOD CELL CASTS,URINE 0-3 /LPF (NONE SEEN)
[2019-12-29] MEDS ORDERED: ONDANSETRON ODT 4 MG TAB.RAPDIS ONE (17:45)
[2019-12-29] MEDS ORDERED: ONDANSETRON ODT 4 MG TAB.RAPDIS SL ONE (17:45)
--- NOTE | 2019-12-29 18:22 | NUR ---
Patient discharged to home in stable condition. Written and verbal after care instructions given. Patient verbalizes understanding of instructions. Stressed follow up or return to ER for worsening s/s.t walks in steady gait. pt son waiting for pt to take the pt home. pt denies n/v/pain at this time.
[2019-12-29 18:34] VITALS: BP 129/71
== END 2019-12-29 18:34 | disposition home or self-care (01) ==
LOC: ER 16:04
DX: L03.116 Cellulitis of left lower limb (principal); Z85.43 Personal history of malignant neoplasm of ovary; M79.7 Fibromyalgia; D86.9 Sarcoidosis, unspecified; G89.4 Chronic pain syndrome; J44.9 Chronic obstructive pulmonary disease, unspecified; L40.50 Arthropathic psoriasis, unspecified; Z88.1 Allergy status to other antibiotic agents; Z88.0 Allergy status to penicillin; Z88.2 Allergy status to sulfonamides; Z79.899 Other long term (current) drug therapy
CPT/HCPCS: 81001; 96365; 96366; 96375; 99284; J1170; J2405; J3370; A4663; Q0162

== ENCOUNTER 2019-12-30 21:20 | Emergency (ER) | payer BC ==
[~2019-12-30] VITALS: Ht 162.6 cm; Wt 90.7 kg
[2019-12-30] MEDS ORDERED: VANCOMYCIN IV 1,000 MG in IV DEXTROSE 5% 250 ML IV ONE (21:30)
[2019-12-30] MEDS ORDERED: VANCOMYCIN IV 200 ML ONE (21:34)
--- NOTE | 2019-12-30 21:35 | NUR ---
Pt brought herself to ER. Ambulatory with steady gait and AO x 4. Per patient, she is back for wound check on L foot as instructed to receive another dose of IV antibiotics. Dr. Sanchez is at bedside for MSE. Pt complains of 6/10 pain on the L foot, and nausea. No other complaints noted. Breathing is even and unlabored. VS stable. Bed locked in place.
[2019-12-30] MEDS ORDERED: ONDANSETRON 4 MG/2 ML VIAL ONE (21:38)
[2019-12-30] MEDS ORDERED: ONDANSETRON 4 MG/2 ML VIAL IV ONE (21:45)
[2019-12-30] MEDS ORDERED: HYDROMORPHONE 2 MG/1 ML DISP.SYRIN ONE (21:55)
[2019-12-30] MEDS ORDERED: HYDROMORPHONE 1 MG/1 ML DISP.SYRIN IV ONE (22:00)
--- NOTE | 2019-12-30 23:25 | NUR ---
Pt requeste to have IV removed. Catheter intact and site benign. Pressure and 4x4 gauze applied to site. No bleeding noted. Patient discharged to home in stable condition. Written and verbal after care instructions given. Patient verbalizes understanding of instructions. Stressed follow up or return to ER for worsening s/s.
[2019-12-30 23:27] VITALS: BP 130/96
== END 2019-12-30 23:27 | disposition home or self-care (01) ==
LOC: ER 21:29
DX: L03.116 Cellulitis of left lower limb (principal); G89.4 Chronic pain syndrome; M79.7 Fibromyalgia; L40.50 Arthropathic psoriasis, unspecified; Z79.891 Long term (current) use of opiate analgesic; J44.9 Chronic obstructive pulmonary disease, unspecified; Z88.1 Allergy status to other antibiotic agents; Z88.0 Allergy status to penicillin; Z88.2 Allergy status to sulfonamides; Z85.43 Personal history of malignant neoplasm of ovary
CPT/HCPCS: 96365; 96366; 96375; 99284; J1170; J2405; J3370; A4663

== ENCOUNTER 2020-01-01 05:59 | Emergency (ER) | payer BC ==
[~2020-01-01] VITALS: Ht 162.6 cm; Wt 90.7 kg
[2020-01-01] MEDS ORDERED: TRAMADOL HCL 50 MG TABLET PO ONE (06:30)
[2020-01-01] MEDS ORDERED: VANCOMYCIN IV 1,000 MG in IV DEXTROSE 5% 250 ML IV ONE (06:30)
[2020-01-01] MEDS ORDERED: ONDANSETRON ODT 4 MG TAB.RAPDIS SL ONE (06:30)
--- NOTE | 2020-01-01 06:30 | NUR ---
Dr. Olivares at bedside for MSE
[2020-01-01] MEDS ORDERED: ONDANSETRON ODT 4 MG TAB.RAPDIS ONE (06:55)
[2020-01-01] MEDS ORDERED: TRAMADOL HCL 50 MG TABLET ONE (06:56)
[2020-01-01] MEDS ORDERED: VANCOMYCIN IV 200 ML ONE (06:57)
[2020-01-01] MEDS ORDERED: MORPHINE SULFATE 4 MG/1 ML DISP.SYRIN IV ONE (07:30)
[2020-01-01] MEDS ORDERED: MORPHINE SULFATE 4 MG/1 ML DISP.SYRIN ONE (07:37)
[2020-01-01] MEDS ORDERED: ONDANSETRON 4 MG/2 ML VIAL ONE (07:56)
[2020-01-01] MEDS ORDERED: ONDANSETRON 4 MG/2 ML VIAL IV ONE (08:00)
--- NOTE | 2020-01-01 09:01 | NUR ---
PATIENT STATES PAIN HAS DIMINISHED. HER ARRIVED TO DRIVE HER HOME. DC AND FOLLOW UP INSTRUCTIONS GIVEN AND EXPLAINED TO PATIENT WHO STATES SHE UNDERSTANDS ALL INSTRUCTIONS INCLUDING NARCOTIC PRECAUTIONS.
--- NOTE | 2020-01-01 09:01 | NUR ---
IV removed. Catheter intact and site benign. Pressure and 4x4 gauze applied to site. No bleeding noted.
[2020-01-01 09:03] VITALS: BP 135/80
== END 2020-01-01 09:03 | disposition home or self-care (01) ==
LOC: ER 06:02
DX: L03.116 Cellulitis of left lower limb (principal); L03.115 Cellulitis of right lower limb; G89.4 Chronic pain syndrome; L40.50 Arthropathic psoriasis, unspecified; M79.7 Fibromyalgia; Z85.43 Personal history of malignant neoplasm of ovary; Z79.899 Other long term (current) drug therapy; R03.0 Elevated blood-pressure reading, without diagnosis of hypertension; Z86.69 Personal history of other diseases of the nervous system and sense organs; Z87.01 Personal history of pneumonia (recurrent); J44.9 Chronic obstructive pulmonary disease, unspecified
CPT/HCPCS: 96365; 96366; 96375; 99284; J2270; J2405; J3370; Q0162

== ENCOUNTER 2020-01-04 02:18 | Emergency (ER) | payer BC ==
[~2020-01-04] VITALS: Ht 162.6 cm; Wt 90.7 kg
--- NOTE | 2020-01-04 02:29 | NUR ---
PATIENT ARRIVED AT THE ER WITH C/O OF DRY SKIN TO EXTREMITIES X1 WK, ALSO REQUESTING IV FLUIDS.
--- NOTE | 2020-01-04 02:49 | NUR ---
Dr. Pinon at bedside for MSE.
--- NOTE | 2020-01-04 03:05 | NUR ---
Patient discharged to home in stable condition. Written and verbal after care instructions given. Patient verbalizes understanding of instructions. Stressed follow up or return to ER for worsening s/s. Pt ambulated out of the ER with steady gait. All belongings with pt.
[2020-01-04 03:06] VITALS: BP 138/90
== END 2020-01-04 03:05 | disposition home or self-care (01) ==
LOC: ER 02:20
DX: Z13.9 Encounter for screening, unspecified (principal); J44.9 Chronic obstructive pulmonary disease, unspecified; Z85.43 Personal history of malignant neoplasm of ovary; M79.7 Fibromyalgia; L40.9 Psoriasis, unspecified; G89.4 Chronic pain syndrome; L40.50 Arthropathic psoriasis, unspecified
CPT/HCPCS: A4663

== ENCOUNTER 2020-04-21 03:26 | Emergency (ER) | payer BC ==
[~2020-04-21] VITALS: Ht 162.6 cm; Wt 90.7 kg
[~2020-04-21 03:26] MED LIST changes: -AMPH30CA3 PO; -HYDR2TAB4 PO
--- NOTE | 2020-04-21 04:11 | NUR ---
ERMD at bedside with female molasses preparer for MSE.
[2020-04-21] MEDS ORDERED: LIDOCAINE HCL 1% 20 ML VIAL IJ ONE (04:15)
[2020-04-21] MEDS ORDERED: IBUPROFEN 800 MG TABLET PO ONE (05:00)
[2020-04-21] MEDS ORDERED: IBUPROFEN 800 MG TABLET ONE (05:00)
--- NOTE | 2020-04-21 05:14 | NUR ---
Patient discharged to home in stable condition. Written and verbal after care instructions given. Patient verbalizes understanding of instructions. Stressed follow up or return to ER for worsening s/s. Patient able to ambulate with stable gait.
[2020-04-21 05:15] VITALS: BP 144/89
== END 2020-04-21 05:17 | disposition home or self-care (01) ==
LOC: ER 03:36
DX: S61.211A Laceration without foreign body of left index finger without damage to nail, initial encounter (principal); W19.XXXA Unspecified fall, initial encounter; Y92.89 Other specified places as the place of occurrence of the external cause; Z88.1 Allergy status to other antibiotic agents; Z88.0 Allergy status to penicillin; Z88.2 Allergy status to sulfonamides; Z80.41 Family history of malignant neoplasm of ovary; Z90.49 Acquired absence of other specified parts of digestive tract; G89.4 Chronic pain syndrome; M79.7 Fibromyalgia; J44.9 Chronic obstructive pulmonary disease, unspecified; Z87.2 Personal history of diseases of the skin and subcutaneous tissue; M25.562 Pain in left knee; M54.89 Other dorsalgia; L40.9 Psoriasis, unspecified; Z79.899 Other long term (current) drug therapy
CPT/HCPCS: A4663

== ENCOUNTER 2021-01-26 02:32 | Inpatient (IN) | payer BC ==
[~2021-01-26] VITALS: Ht 162.6 cm; Wt 90.7 kg
[2021-01-26] MEDS ORDERED: IV NORMAL SALINE 1000 ML BAG IV ONE (03:15)
[2021-01-26] MEDS ORDERED: ONDANSETRON 4 MG/2 ML VIAL IV ONE ×2 (03:15→05:00)
[2021-01-26] MEDS ORDERED: PANTOPRAZOLE SODIUM 40 MG VIAL IV ONE (03:15)
[2021-01-26] MEDS ORDERED: HYDROMORPHONE 1 MG/1 ML DISP.SYRIN IV ONE ×2 (03:15→05:00)
[2021-01-26] MEDS ORDERED: ONDANSETRON 4 MG/2 ML VIAL ONE ×3 (03:17→09:57)
[2021-01-26] MEDS ORDERED: PANTOPRAZOLE SODIUM 40 MG VIAL ONE ×2 (03:17→10:06)
[2021-01-26] MEDS ORDERED: HYDROMORPHONE 2 MG/1 ML DISP.SYRIN ONE (03:17)
[2021-01-26 03:44] LABS: HEMATOCRIT 44.1 % (31.2-41.9); MEAN CORPUSCULAR HEMOGLOBIN 28.3 uug (24.7-32.8); MEAN CORPUSCULAR VOLUME 85.5 fL (75.5-95.3); PLATELET COUNT (AUTO) 321 K/uL (179-408)
[2021-01-26 03:46] LABS: BILIRUBIN,DIRECT 0.1 mg/dL (0.0-0.2); BILIRUBIN,TOTAL 0.3 mg/dL (0.2-1.0); CREATININE 0.8 mg/dL (0.6-1.3); TOTAL PROTEIN, SERUM 8.3 g/dL (6.4-8.2)
[2021-01-26] MEDS ORDERED: HYDROMORPHONE 1 MG/1 ML DISP.SYRIN ONE (05:08)
[2021-01-26] MEDS ORDERED: METOCLOPRAMIDE HCL 10 MG/2 ML VIAL IV SCH ×2 (05:45→10:42)
[2021-01-26] MEDS ORDERED: ONDANSETRON 4 MG/2 ML VIAL IV PRN (05:45)
[2021-01-26] MEDS ORDERED: Z GUARD REMEDY PASTE 57 GM TUBE TOP PRN (05:45)
[2021-01-26] MEDS: PANTOPRAZOLE SODIUM 40 MG VIAL IV SCH (09:00)
[2021-01-26] MEDS ORDERED: MORPHINE SULFATE 2 MG/1 ML DISP.SYRIN ONE (09:57)
[2021-01-26] MEDS ORDERED: METOCLOPRAMIDE HCL 10 MG/2 ML VIAL ONE (10:00)
[2021-01-26] MEDS: MORPHINE SULFATE 2 MG/1 ML DISP.SYRIN IV PRN ×3 (10:08→14:52)
[2021-01-26 11:51] VITALS: BP 99/44
[2021-01-26] MEDS: IV D5 1/2 NS 1000 ML 1,000 ML IV PRN (13:52)
[2021-01-26] MEDS: METOCLOPRAMIDE HCL 10 MG/2 ML VIAL IV SCH ×2 (15:02→21:52)
[2021-01-26] MEDS: NICOTINE 14 MG/24HR PATCH TD SCH (15:02)
[2021-01-26] MEDS: ENOXAPARIN SODIUM 40 MG/0.4 ML DISP.SYRIN SQ SCH (15:04)
[2021-01-26 16:01] VITALS: BP 98/47
[2021-01-26] MEDS: HYDROMORPHONE 1 MG/1 ML DISP.SYRIN IV PRN (17:19)
[2021-01-26] MEDS ORDERED: SWABABLE VALVE TRANSFER SET EA MC ONE (18:47)
[2021-01-26] MEDS ORDERED: IV NORMAL SALINE 250 ML IV ONE (18:47)
[2021-01-26] MEDS ORDERED: IOHEXOL 300MG/ML 100 ML INFUS..BTL ONE (18:47)
[2021-01-26] MEDS ORDERED: DIATR MEGLU/DIATRIZOATE SODIUM 30 ML BOTTLE ONE (18:55)
[2021-01-26 20:00] VITALS: BP_SYST 110; BP_DIAS 52; BP_DIAS 62
[2021-01-27] MEDS: IV D5 1/2 NS 1000 ML 1,000 ML IV PRN ×2 (01:54→14:42)
[2021-01-27 04:00] VITALS: BP 112/63
[2021-01-27] MEDS: HYDROMORPHONE 1 MG/1 ML DISP.SYRIN IV PRN ×2 (04:22→10:45)
[2021-01-27 06:41] LABS: HEMATOCRIT 37.6 % (31.2-41.9); MEAN CORPUSCULAR VOLUME 87.1 fL (75.5-95.3); PLATELET COUNT (AUTO) 285 K/uL (179-408)
[2021-01-27] MEDS: METOCLOPRAMIDE HCL 10 MG/2 ML VIAL IV SCH ×3 (06:45→21:07)
[2021-01-27 07:00] LABS: CREATININE 0.8 mg/dL (0.6-1.3); MAGNESIUM 2.2 mg/dL (1.8-2.4); POTASSIUM 3.6 mmol/L (3.5-5.1)
[2021-01-27] MEDS: PANTOPRAZOLE SODIUM 40 MG VIAL IV SCH (07:54)
[2021-01-27] MEDS: NICOTINE 14 MG/24HR PATCH TD SCH (07:54)
[2021-01-27] MEDS: ENOXAPARIN SODIUM 40 MG/0.4 ML DISP.SYRIN SQ SCH (07:55)
[2021-01-27] MEDS ORDERED: VENL75CA62 PO (08:02)
[2021-01-27] MEDS ORDERED: Medication Not On Formulary EA (Progesterone,Micronized (Prometrium) 100 MG) PO SCH (09:00)
[2021-01-27] MEDS ORDERED: VENLAFAXINE XR 150 MG CAP.SR.24H PO SCH (09:00)
[2021-01-27] MEDS ORDERED: ESTRADIOL 1 MG TABLET PO SCH (09:00)
[2021-01-27] MEDS ORDERED: PROGESTERONE 100 MG PO SCH (09:45)
[2021-01-27 11:10] VITALS: BP 100/51
[2021-01-27 14:58] VITALS: BP 93/55
[2021-01-27] MEDS ORDERED: GOLYTELY 4000 ML BOTTLE PO ONE (15:00)
[2021-01-27] MEDS ORDERED: VENLAFAXINE XR 75 MG TAB.ER.24H PO SCH (16:45)
[2021-01-27 20:00] VITALS: BP_SYST 128; BP_SYST 151; BP_DIAS 62; BP_DIAS 71
[2021-01-28] MEDS ORDERED: PROGESTERONE 100 MG PO SCH (21:00)
== END 2021-01-27 22:27 | disposition left against medical advice (07) | DRG 389 ==
LOC: ER 02:34 → MEDSURG3 10:34
PROVIDERS: ADMIT Nurse Practitioner Family; ATTEND Student in an Organized Health Care Education/Training Program
DX: K56.609 Unspecified intestinal obstruction, unspecified as to partial versus complete obstruction (principal); F11.20 Opioid dependence, uncomplicated; K31.84 Gastroparesis; M06.9 Rheumatoid arthritis, unspecified; L40.50 Arthropathic psoriasis, unspecified; G89.4 Chronic pain syndrome; M51.37 Other intervertebral disc degeneration, lumbosacral region; J44.9 Chronic obstructive pulmonary disease, unspecified; M79.7 Fibromyalgia; R42 Dizziness and giddiness; F90.9 Attention-deficit hyperactivity disorder, unspecified type; Z90.49 Acquired absence of other specified parts of digestive tract; K76.0 Fatty (change of) liver, not elsewhere classified; G43.909 Migraine, unspecified, not intractable, without status migrainosus; D86.9 Sarcoidosis, unspecified; Z80.41 Family history of malignant neoplasm of ovary; Z88.1 Allergy status to other antibiotic agents; Z88.5 Allergy status to narcotic agent; Z88.0 Allergy status to penicillin; Z88.2 Allergy status to sulfonamides; Z53.29 Procedure and treatment not carried out because of patient's decision for other reasons; Z79.899 Other long term (current) drug therapy
CPT/HCPCS: 36415; 70030-TC; 71045; 83605; 83690; 83735; 85025; 93005; A4663; C9113; G0378; J1170; J1650; J2270; J2405; J2765; J3490; J7030; J7050; Q9963; Q9967; U0003

== ENCOUNTER 2024-11-27 20:40 | Inpatient (IN) | payer BC ==
[~2024-11-27] VITALS: Ht 162.6 cm; Wt 81.2 kg
[~2024-11-27 20:40] MED LIST changes: -VENL150C2 PO; +VENL75CA62 PO
[2024-11-27 21:48] LABS: BASOPHILS # (AUTO) 0.1 K/UL (0.0-0.2); BASOPHILS % (AUTO) 0.7 % (0.0-2.0); EOSINOPHILS # (AUTO) 0.1 K/uL (0.0-0.7); EOSINOPHILS % (AUTO) 1.2 % (0.0-7.0); HEMATOCRIT 40.4 % (31.2-41.9); HEMOGLOBIN 13.2 g/dL (10.9-14.3); LYMPHOCYTES # (AUTO) 2.8 K/uL (0.8-4.8); LYMPHOCYTES % (AUTO) 23.8 % (20.5-51.5); MEAN CORPUSCULAR HEMOGLOBIN 28.5 uug (24.7-32.8); MEAN CORPUSCULAR HGB CONC 33 g/dL (32.3-35.6); MONOCYTES # (AUTO) 0.8 K/uL (0.1-1.30); NEUTROPHILS # (AUTO) 7.9 K/uL (1.8-8.9); NEUTROPHILS % (AUTO) 67.3 % (38.5-71.5); PLATELET COUNT (AUTO) 252 K/uL (179-408); RED BLOOD CELL COUNT(AUTO) 4.65 MIL/uL (3.63-4.92); RED CELL DISTRIBUTION WIDTH 13.5 % (12.3-17.7); WHITE BLOOD COUNT (AUTO) 11.7 K/uL (3.8-11.8)
[2024-11-27] MEDS ORDERED: HYDROMORPHONE 1 MG/1 ML DISP.SYRIN ONE ×2 (21:49→23:25)
[2024-11-27] MEDS ORDERED: ONDANSETRON 4 MG/2 ML VIAL ONE (21:49)
[2024-11-27 21:51] LABS: DIFFERENTIAL COMMENT 1
[2024-11-27 21:53] LABS: *BILIRUBIN,URIN 1+ (NEGATIVE); *BLOOD, URINE NEGATIVE (NEGATIVE); *CLARITY,URINE CLEAR (CLEAR); *COLOR,URINE YELLOW (YELLOW); *KETONES,URINE 1+ (NEGATIVE); *PROTEIN,URINE 1+ (NEGATIVE); *UROBILINOGEN,URINE 0.2 E.U./dl (NORMAL); LEUKOCYTE ESTERASE ,URINE NEGATIVE (NEGATIVE); NITRITE, URINE NEGATIVE (NEGATIVE); PH,URINE 5.5 (5.0-8.0); UGLUCOSE NEGATIVE (NEGATIVE)
[2024-11-27 21:54] LABS: *OCCULT BLOOD STOOL POSITIVE (NEGATIVE)
[2024-11-27 21:56] LABS: CALCIUM 8.6 mg/dL (8.5-10.1); CREATININE 0.8 mg/dL (0.6-1.3); POTASSIUM 3.7 mmol/L (3.5-5.1)
[2024-11-27 21:59] LABS: BACTERIA,URINE FEW /HPF (NONE SEEN); RBC,URINE NONE SEEN /HPF (0-3); SQUAMOUS EPITHELIAL CELL,UR MODERATE /HPF (NONE SEEN); WBC,URINE 0-3 /HPF (0-3)
[2024-11-27 22:00] LABS: ALBUMIN 3.2 g/dL (3.4-5.0); BILIRUBIN,DIRECT 0.1 mg/dL (0.0-0.2); BILIRUBIN,TOTAL 0.2 mg/dL (0.2-1.0); TOTAL PROTEIN, SERUM 6.6 g/dL (6.4-8.2)
[2024-11-27] MEDS: ONDANSETRON 4 MG/2 ML VIAL IV ONE (22:01)
[2024-11-27] MEDS: IV NORMAL SALINE 1000 ML BAG IV ONE (22:01)
[2024-11-27] MEDS: HYDROMORPHONE 1 MG/1 ML DISP.SYRIN IV ONE ×2 (22:01→23:32)
[2024-11-27] MEDS ORDERED: IOHEXOL 300MG/ML 100 ML INFUS..BTL ONE (22:42)
[2024-11-27] MEDS ORDERED: AMPH30TA3 PO (23:39)
[2024-11-27] MEDS ORDERED: METF-494 PO (23:39)
[2024-11-27] MEDS ORDERED: VENL225T PO (23:39)
[2024-11-27] MEDS ORDERED: PREG150C PO (23:39)
[2024-11-28] MEDS: levoFLOXacin 750 MG/D5W 150 ML PIGGYBACK IV ONE (02:30)
[2024-11-28] MEDS ORDERED: levoFLOXacin 750MG/D5W 150 ML IV ONE (02:42)
[2024-11-28] MEDS ORDERED: METRONIDAZOLE 500 MG/NS 100ML 100 ML IV ONE (02:42)
[2024-11-28] MEDS: METRONIDAZOLE 500 MG/NS 100 ML PIGGYBACK IV ONE (02:46)
[2024-11-28] MEDS ORDERED: HYDROMORPHONE 1 MG/1 ML DISP.SYRIN ONE (03:16)
[2024-11-28] MEDS: HYDROMORPHONE 1 MG/1 ML DISP.SYRIN IV ONE (03:17)
[2024-11-28] MEDS ORDERED: ACETAMINOPHEN 325 MG TABLET PO PRN (04:00)
[2024-11-28] MEDS ORDERED: REMEDY ESSENTIAL ZINC PASTE 113 GM TP PRN (04:00)
[2024-11-28] MEDS: levoFLOXacin 500 MG/D5W 500 MG in PREMIXED 1 EACH IV SCH (04:00)
[2024-11-28] MEDS ORDERED: MAGNESIUM HYDROXIDE 30 ML LIQUID UDC PO PRN (04:00)
[2024-11-28 04:30] VITALS: BP 94/35; TEMP 97.8; O2SAT 95
[2024-11-28] MEDS: IV D5 1/2 NS 1000 ML 1,000 ML IV PRN (04:51)
[2024-11-28] MEDS: ONDANSETRON 4 MG/2 ML VIAL IV PRN (05:09)
[2024-11-28 06:00] VITALS: BP 103/42; TEMP 97.7; O2SAT 95
[2024-11-28] MEDS: HYDROMORPHONE 1 MG/1 ML DISP.SYRIN IV PRN (06:55)
[2024-11-28] MEDS: PANTOPRAZOLE SODIUM 40 MG VIAL IV SCH (09:48)
[2024-11-28] MEDS: IV D5 1/2 NS 1000 ML 1,000 ML IV SCH (09:57)
[2024-11-28] MEDS ORDERED: DEXTROSE 50% 50 ML DISP.SYRIN IV PRN (10:45)
[2024-11-28] MEDS ORDERED: INSULIN REGULAR, HUMAN 1000 UNIT/10 ML VIAL SQ PRN (10:45)
[2024-11-28] MEDS: PREGABALIN 50 MG CAPSULE PO SCH (12:22)
[2024-11-28] MEDS: BLOOD SUGAR DIAGNOSTIC 1 EACH STRIP VI SCH (12:28)
[2024-11-28] MEDS: METRONIDAZOLE 500 MG/NS 100ML 500 MG in PREMIXED 1 EACH IV SCH (13:18)
[2024-11-28] MEDS ORDERED: MEDR2.5T7 PO (15:25)
[2024-11-28] MEDS ORDERED: VENL150C58 PO (15:26)
[2024-11-28] MEDS ORDERED: ONDA-104 PO (15:27)
[2024-11-28] MEDS ORDERED: METF-440 PO (15:29)
[2024-11-28] MEDS ORDERED: MOUNJARO SQ (15:32)
[2024-11-28 18:19] LABS: HEMOGLOBIN 11.3 g/dL (10.9-14.3)
[2024-11-28 19:30] VITALS: BP 114/45; TEMP 98.6; O2SAT 98
[2024-11-29 05:32] VITALS: BP 127/57; TEMP 98.2
[2024-11-29] MEDS ORDERED: METR500T PO (06:20)
[2024-11-29] MEDS ORDERED: CIPR500T5 PO (06:20)
[2024-11-29 06:53] LABS: BASOPHILS % (AUTO) 0.8 % (0.0-2.0); EOSINOPHILS # (AUTO) 0.1 K/uL (0.0-0.7); EOSINOPHILS % (AUTO) 2.4 % (0.0-7.0); HEMATOCRIT 34.2 % (31.2-41.9); HEMOGLOBIN 11.6 g/dL (10.9-14.3); LYMPHOCYTES # (AUTO) 2.1 K/uL (0.8-4.8); LYMPHOCYTES % (AUTO) 42.2 % (20.5-51.5); MEAN CORPUSCULAR HEMOGLOBIN 29.3 uug (24.7-32.8); MEAN CORPUSCULAR HGB CONC 34 g/dL (32.3-35.6); MEAN CORPUSCULAR VOLUME 86.8 fL (75.5-95.3); MONOCYTES # (AUTO) 0.4 K/uL (0.1-1.30); MONOCYTES % (AUTO) 8.7 % (0.0-11.0); NEUTROPHILS # (AUTO) 2.2 K/uL (1.8-8.9); NEUTROPHILS % (AUTO) 45.9 % (38.5-71.5); PLATELET COUNT (AUTO) 225 K/uL (179-408); RED BLOOD CELL COUNT(AUTO) 3.94 MIL/uL (3.63-4.92); RED CELL DISTRIBUTION WIDTH 13.5 % (12.3-17.7); WHITE BLOOD COUNT (AUTO) 4.9 K/uL (3.8-11.8)
[2024-11-29 06:54] LABS: DIFFERENTIAL COMMENT 1
[2024-11-29 07:13] LABS: CALCIUM 8.1 mg/dL (8.5-10.1); CREATININE 0.6 mg/dL (0.6-1.3); MAGNESIUM 1.9 mg/dL (1.8-2.4); PHOSPHOROUS 3.8 mg/dL (2.5-4.9); POTASSIUM 3.9 mmol/L (3.5-5.1)
[2024-11-29] MEDS ORDERED: Medication Not On Formulary EA (Progesterone,Micronized (Prometrium) 100 MG) PO SCH (09:00)
[2024-11-29] MEDS ORDERED: VENLAFAXINE XR 75 MG TAB.ER.24H PO SCH (09:00)
[2024-11-29] MEDS: MIRALAX 17 GM POWD.PACK PO SCH (10:55)
[2024-11-29] MEDS: DOCUSATE SODIUM 100 MG CAPSULE PO SCH (10:55)
[2024-11-29] MEDS: ESTRADIOL 1 MG TABLET PO SCH (10:56)
[2024-11-29] MEDS: medroxyPROGESTERone ACET 5 MG TABLET PO SCH (10:56)
[2024-11-29] MEDS: VENLAFAXINE XR 150 MG CAP.SR.24H PO SCH (10:57)
[2024-11-29] MEDS: levoFLOXacin 500 MG/D5W 500 MG in PREMIXED 1 EACH IV SCH (10:57)
[2024-11-29] MEDS: LACTULOSE 20 G/30 ML LIQUID UDC PO STA (11:04)
[2024-11-29] MEDS ORDERED: OXYCODONE/APAP 5-325 MG TABLET PO PRN (13:30)
[2024-11-29 19:50] VITALS: BP 124/61; TEMP 98; O2SAT 96
[2024-11-30 05:40] VITALS: BP 126/47; TEMP 98.1; O2SAT 92
[2024-11-30] MEDS: PANTOPRAZOLE SODIUM 40 MG TABLET.DR PO SCH (06:26)
[2024-11-30 11:00] VITALS: BP 127/62; TEMP 98.2
== END 2024-11-30 11:40 | disposition home or self-care (01) | DRG 372 ==
LOC: ER 21:02 → MEDSURG3 11-28 04:07
PROVIDERS: ADMIT Student in an Organized Health Care Education/Training Program; ATTEND Internal Medicine
DX: A04.9 Bacterial intestinal infection, unspecified (principal); F11.20 Opioid dependence, uncomplicated; F17.210 Nicotine dependence, cigarettes, uncomplicated; G89.4 Chronic pain syndrome; Z90.49 Acquired absence of other specified parts of digestive tract; L40.50 Arthropathic psoriasis, unspecified; D86.9 Sarcoidosis, unspecified; F90.9 Attention-deficit hyperactivity disorder, unspecified type; Z80.41 Family history of malignant neoplasm of ovary; Z88.0 Allergy status to penicillin; Z88.1 Allergy status to other antibiotic agents; Z88.2 Allergy status to sulfonamides; Z88.5 Allergy status to narcotic agent; F32.A Depression, unspecified
CPT/HCPCS: 36415; 76856; 83690; 83735; 84100; 85018; 85025; A4663; G0378; J1171; J1815; J1956; J2405; J2470; J3490; J7040; J7042; Q9967